=== PATIENT | male | born 1955 | race American Indian/Alaskan Native ===

== ENCOUNTER 2016-12-14 09:38 | Emergency (ER) | payer SELFPAY ==
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
[2016-12-14 11:36] LABS: Urine Drugs of Abuse Note Disclamer
[2016-12-14] MEDS ORDERED: NORMODYNE IV ONE ×2 (11:38→11:42)
[2016-12-14 11:44] LABS: Bilirubin,Urine NEG (Negative); Blood,Urine SM (Negative); Ketones,Urine NEG (Negative); Leukocyte Esterase,Urine NEG (Negative); Nitrite,Urine NEG (Negative); Urobilinogen,Urine < 2.0 mg/dL (<2.0)
--- NOTE | 2016-12-14 11:46 | XRay Report ---
AP CHEST: HISTORY: Hypertension, chest pain AP view of the chest demonstrates a normal mediastinal and cardiac contour with clear lungs and normal bony and soft tissue structures. IMPRESSION: Unremarkable AP chest.
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
[2016-12-14 11:54] LABS: Basophils % (Auto) 0.5 % (0.0-1.8); Eosinophils % (Auto) 3.1 % (0.0-4.3); Hematocrit 40.8 % (35.5-45.6); Hemoglobin 12.8 gm/dl (11.8-15.2); Mean Corpuscular HGB Conc 32 % (32-34); Mean Corpuscular Volume 82 fl (84-94); Platelet Count 271 K/mm3 (140-440); Red Blood Count 4.97 M/mm3 (3.65-5.03); Red Cell Distribution Width 17.8 % (13.2-15.2); White Blood Count 7.4 K/mm3 (4.5-11.0)
[2016-12-14 12:03] LABS: INR 0.86 (0.87-1.13)
[2016-12-14 12:04] LABS: Partial Thromboplastin Time 31.1 Sec. (24.2-36.6)
[2016-12-14 12:05] LABS: Mean Corpuscular Hemoglobin 26 pg (28-32)
[2016-12-14 12:14] VITALS: BP 192/103
[2016-12-14 12:14] LABS: Blood Urea Nitrogen 13 mg/dL (9-20); Carbon Dioxide 25 mmol/L (22-30)
[2016-12-14 12:15] LABS: Anion Gap 22 mmol/L; Calcium 9.3 mg/dL (8.4-10.2); Chloride 99.2 mmol/L (98-107); Glucose 142 mg/dL (75-100); Potassium 3.9 mmol/L (3.6-5.0); Sodium 142 mmol/L (137-145)
[2016-12-14 12:17] LABS: Alanine Aminotransferase 22 units/L (7-56); Albumin 3.8 g/dL (3.9-5); Alkaline Phosphatase 68 units/L (35-129); Total Protein 7.5 g/dL (6.3-8.2)
[2016-12-14 12:19] LABS: Bilirubin,Direct < 0.2 mg/dL (0-0.2)
== END 2016-12-14 12:36 | disposition other institution (70) ==
LOC: ED 09:38
DX: S06.5X0A Traumatic subdural hemorrhage without loss of consciousness, initial encounter (principal); S00.212A Abrasion of left eyelid and periocular area, initial encounter; I11.0 Hypertensive heart disease with heart failure; I50.9 Heart failure, unspecified; E11.40 Type 2 diabetes mellitus with diabetic neuropathy, unspecified; I25.2 Old myocardial infarction; E78.00 Pure hypercholesterolemia, unspecified; Z87.891 Personal history of nicotine dependence; Z79.01 Long term (current) use of anticoagulants; Z79.82 Long term (current) use of aspirin; Y04.8XXA Assault by other bodily force, initial encounter; Y93.89 Activity, other specified; Y92.89 Other specified places as the place of occurrence of the external cause; Y99.8 Other external cause status
CPT/HCPCS: 36415; 70450; 70486; 71010; 72125; 80048; 80074; 80307; 81001; 82962; 83735; 85025; 85610; 85730; 93005; 93010; 96374; 99291; G0480; 80320

== ENCOUNTER 2016-12-25 13:01 | Outpatient (CLI) | payer OTHER ==
[2016-12-25 13:35] LABS: Blood Urea Nitrogen 24 mg/dL (9-20)
--- NOTE | 2016-12-25 15:13 | Cat Scan Report ---
CT HEAD WITH AND WITHOUT CONTRAST INDICATION: History of subdural hematomas. COMPARISON: 12/14/2016. FINDINGS: Head CT performed before and after IV contrast suggest interval resolution of small bifrontal subdural hemorrhages. Stable age appropriate ventricles and sulci and mild periventricular white matter hypodense small vessel ischemic disease. No definite acute infarct, hemorrhage, mass effect or midline shift. No focal suspicious abnormal enhancement. Normal posterior fossa with preserved basilar cisterns. Clear imaged paranasal sinuses and mastoid air cells. Atherosclerotic internal carotid and vertebral artery calcifications. Normal calvarium and scalp. Edentulous jaw. CONCLUSION: Age-appropriate atrophy, microvascular changes and interval resolution of small bilateral subdural hemorrhages without acute intracranial CT abnormality, as described. Thank you for the opportunity to participate in this patient's care.
== END 2016-12-25 13:02 | disposition home or self-care (01) ==
LOC: CT 13:01
PROVIDERS: ATTEND Student in an Organized Health Care Education/Training Program
DX: S06.5X0D Traumatic subdural hemorrhage without loss of consciousness, subsequent encounter (principal); E11.9 Type 2 diabetes mellitus without complications; G31.89 Other specified degenerative diseases of nervous system; I10 Essential (primary) hypertension; I70.0 Atherosclerosis of aorta; X58.XXXD Exposure to other specified factors, subsequent encounter
CPT/HCPCS: 36415; 70470; 82565; 84520; Q9967

== ENCOUNTER 2017-05-05 10:25 | Emergency (ER) | payer SELFPAY ==
--- NOTE | 2017-05-05 11:10 | Emergency Department Report ---
ED Chest Pain HPI - General Chief Complaint: Chest Pain Stated Complaint: CHEST PAIN Time Seen by Provider: 05/05/17 10:52 Source: EMS Mode of arrival: Stretcher Limitations: No Limitations - History of Present Illness Initial Comments: Patient is 61 years old -Citizen Of [place] male history of coronary artery disease status post stent last year, hypertension and dyslipidemia. Patient presented with left-sided chest pain started this morning while he was walking. Patient stated that his chest pain is resolved now that he was similar to when he had his heart attack last year. Patient received 324 mg of aspirin via EMS. Initial EKG did not show any ST elevation. MD Complaint: chest pain -: Sudden, This morning Onset: during exertion Pain Location: left chest Pain Radiation: LUE Severity scale (0 -10): 5 Quality: heaviness, pressure Consistency: now resolved - Related Data Previous Rx's Medication Instructions Recorded Last Taken Type Aspirin 81 mg PO DAILY #30 tab.chew 03/16/16 1 Day Ago Rx ~06/25/16 ALBUTEROL NEB's [Proventil 0.083% 2.5 mg IH Q4HRT PRN #30 nebu 06/29/16 Unknown Rx NEBS] Acetaminophen [Acetaminophen TAB] 650 mg PO Q4H PRN #30 tablet 06/29/16 Unknown Rx AtorvaSTATin [Lipitor] 40 mg PO QHS #30 tablet 06/29/16 Unknown Rx Azithromycin [Zithromax TAB] 250 mg PO QDAY #3 tablet 06/29/16 Unknown Rx Benzonatate [Tessalon Perles] 100 mg PO Q12H #30 capsule 06/29/16 Unknown Rx Clopidogrel [Plavix] 75 mg PO QDAY #30 tablet 06/29/16 Unknown Rx Famotidine [Pepcid] 20 mg PO QHS #30 tablet 06/29/16 Unknown Rx Gabapentin [Neurontin] 100 mg PO BID #60 capsule 06/29/16 Unknown Rx Ipratropium/Albuterol Sulfate 1 ampul IH TIDRT #1 mo 06/29/16 Unknown Rx [DUONEB *Not for PRN Use*] Lisinopril [Zestril TAB] 20 mg PO QDAY #30 tablet 06/29/16 Unknown Rx Metoprolol [Lopressor TAB] 50 mg PO BID #60 tablet 06/29/16 Unknown Rx Nitroglycerin [Nitrostat] 0.4 mg SL .Q5MIN PRN #30 tablet 06/29/16 Unknown Rx glipiZIDE [Glucotrol] 5 mg PO QDDIAB #30 tablet 06/29/16 Unknown Rx guaiFENesin ER [Mucinex ER] 600 mg PO BID PRN #10 tablet 06/29/16 Unknown Rx metFORMIN [Glucophage] 500 mg PO BIDDIAB #60 tablet 06/29/16 Unknown Rx oxyCODONE /ACETAMINOPHEN [Percocet 1 tab PO Q6H PRN #30 tablet 06/29/16 Unknown Rx 5/325 mg] Allergies Allergy/AdvReac Type Severity Reaction Status Date / Time No Known Allergies Allergy Verified 12/14/16 10:00 Heart Score - HEART Score History: Moderately suspicious EKG: Non-specific Age: 45-65 Risk factors: > 3 risk factors or hx of atherosclerotic disease Troponin: < normal limit HEART Score: 5 - Critical Actions Critical Actions: 4-6 pts:12-16.6% risk of adverse cardiac event. Should be admitted ED Review of Systems ROS: Stated complaint: CHEST PAIN Other details as noted in HPI Comment: All other systems reviewed and negative Constitutional: denies: chills, fever Respiratory: denies: cough, shortness of breath, SOB with exertion, SOB at rest Cardiovascular: chest pain. denies: palpitations, dyspnea on exertion Gastrointestinal: denies: abdominal pain, nausea, vomiting, diarrhea, constipation, hematemesis, hematochezia Genitourinary: denies: urgency, frequency Musculoskeletal: denies: back pain, joint swelling Neurological: denies: headache, weakness, numbness, paresthesias, confusion ED Past Medical Hx - Past Medical History Hx Hypertension: Yes Hx Heart Attack/AMI: Yes (stent placement.) Hx Congestive Heart Failure: Yes Hx Diabetes: Yes Hx GERD: Yes Hx Arthritis: Yes Additional medical history: high cholesterol. neuropathy - Surgical History Hx Coronary Stent: Yes Additional Surgical History: back surgery x 4. Stents - Social History Smoking Status: Current Every Day Smoker - Medications Home Medications: Home Medications Medication Instructions Recorded Confirmed Last Taken Type Aspirin 81 mg PO DAILY #30 tab.chew 03/16/16 06/26/16 1 Day Ago Rx ~06/25/16 ALBUTEROL NEB's [Proventil 0.083% 2.5 mg IH Q4HRT PRN #30 nebu 06/29/16 Unknown Rx NEBS] Acetaminophen [Acetaminophen TAB] 650 mg PO Q4H PRN #30 tablet 06/29/16 Unknown Rx AtorvaSTATin [Lipitor] 40 mg PO QHS #30 tablet 06/29/16 Unknown Rx Azithromycin [Zithromax TAB] 250 mg PO QDAY #3 tablet 06/29/16 Unknown Rx Benzonatate [Tessalon Perles] 100 mg PO Q12H #30 capsule 06/29/16 Unknown Rx Clopidogrel [Plavix] 75 mg PO QDAY #30 tablet 06/29/16 Unknown Rx Famotidine [Pepcid] 20 mg PO QHS #30 tablet 06/29/16 Unknown Rx Gabapentin [Neurontin] 100 mg PO BID #60 capsule 06/29/16 Unknown Rx Ipratropium/Albuterol Sulfate 1 ampul IH TIDRT #1 mo 06/29/16 Unknown Rx [DUONEB *Not for PRN Use*] Lisinopril [Zestril TAB] 20 mg PO QDAY #30 tablet 06/29/16 Unknown Rx Metoprolol [Lopressor TAB] 50 mg PO BID #60 tablet 06/29/16 Unknown Rx Nitroglycerin [Nitrostat] 0.4 mg SL .Q5MIN PRN #30 tablet 06/29/16 Unknown Rx glipiZIDE [Glucotrol] 5 mg PO QDDIAB #30 tablet 06/29/16 Unknown Rx guaiFENesin ER [Mucinex ER] 600 mg PO BID PRN #10 tablet 06/29/16 Unknown Rx metFORMIN [Glucophage] 500 mg PO BIDDIAB #60 tablet 06/29/16 Unknown Rx oxyCODONE /ACETAMINOPHEN [Percocet 1 tab PO Q6H PRN #30 tablet 06/29/16 Unknown Rx 5/325 mg] ED Physical Exam - General Limitations: No Limitations General appearance: alert, in no apparent distress - Head Head exam: Present: atraumatic, normocephalic, normal inspection - Eye Eye exam: Present: normal appearance, PERRL - ENT ENT exam: Present: normal exam, normal orophraynx, mucous membranes moist - Neck Neck exam: Present: normal inspection, full ROM. Absent: tenderness, meningismus, lymphadenopathy, thyromegaly - Respiratory Respiratory exam: Present: normal lung sounds bilaterally. Absent: respiratory distress, wheezes, rales, rhonchi, stridor, chest wall tenderness, accessory muscle use, decreased breath sounds, prolonged expiratory - Cardiovascular Cardiovascular Exam: Present: regular rate, normal rhythm, normal heart sounds - GI/Abdominal GI/Abdominal exam: Present: soft, normal bowel sounds. Absent: distended, tenderness, guarding, rebound, rigid, organomegaly, mass, bruit, pulsatile mass , hernia - Extremities Exam Extremities exam: Present: normal inspection, full ROM, normal capillary refill - Back Exam Back exam: Present: normal inspection, full ROM. Absent: tenderness, CVA tenderness (R), CVA tenderness (L), muscle spasm, paraspinal tenderness, vertebral tenderness - Neurological Exam Neurological exam: Present: alert, oriented X3, CN II-XII intact, normal gait, reflexes normal. Absent: abnormal gait, motor sensory deficit - Skin Skin exam: Present: warm, intact, normal color. Absent: cyanosis, diaphoretic, erythema, urticaria ED Course Vital Signs 05/05/17 05/05/17 10:50 10:55 Temperature 98 F 98 F Pulse Rate 68 68 Respiratory 15 15 Rate Blood Pressure 144/92 Blood Pressure 144/92 [Left] O2 Sat by Pulse 95 95 Oximetry CHRISTIANO score - Christiano Score Age > 65: (0) No Aspirin use within the Past 7 Days: (1) Yes 3 or more CAD Risk Factors: (1) Yes 2 or more Angina events in past 24 hrs: (1) Yes Known CAD with more than 50% Stenosis: (1) Yes Elevated Cardiac Markers: (0) No ST Deviation Greater than 0.5mm: (0) No CHRISTIANO Score: 4 ED Medical Decision Making - Lab Data Result diagrams: 05/05/17 11:34 05/05/17 11:34 - EKG Data -: EKG Interpreted by In EKG shows normal: sinus rhythm Rate: normal - EKG Data Interpretation: no acute changes - Radiology Data Radiology results: report reviewed Referring Physician: RACHNA MO Patient Name: EVANS STYLES Date of : 1955 Sex: Male Report Date: 2017-05-05 Report Status: Finalized Findings [facility] [address] [place] [address] XRay Report Signed Patient: EVANS STYLES MR#: [id number] : 1955 Acct:[id number] Age/Sex: 61 / M ADM Date: 05/05/17 Loc: ED Attending Dr: Ordering Physician: RACHNA MO Date of Service: 05/05/17 Procedure(s): XR chest 1V ap Accession Number(s): [id number] cc: RACHNA MO Fluoro Time In Minutes: AP CHEST: HISTORY: chest pain AP view of the chest demonstrates a normal mediastinal and cardiac contour with clear lungs and normal bony and soft tissue structures. IMPRESSION: Unremarkable AP chest. Transcribed By: TTR Dictated By: MARIE CAPPS JR, MD Electronically Authenticated By: MARIE CAPPS JR, MD Signed Date/Time: 05/05/171113 DD/ 13 TD/TT: 05/05/171113 - Medical Decision Making discuss with Dr Casas, informed about the patient, he agreed to admit patient to his service. Critical care attestation.: If time is entered above; I have spent that time in minutes in the direct care of this critically ill patient, excluding procedure time. ED Disposition Clinical Impression: Chest pain Disposition: -09 OP ADMIT IP TO THIS HOSP Is pt being admited?: Yes Condition: Stable Instructions: Chest Pain (ED) Referrals: PRIMARY CARE, [Primary Care Provider] - 3-5 Days
--- NOTE | 2017-05-05 11:20 | XRay Report ---
AP CHEST: HISTORY: chest pain AP view of the chest demonstrates a normal mediastinal and cardiac contour with clear lungs and normal bony and soft tissue structures. IMPRESSION: Unremarkable AP chest.
[2017-05-05 11:59] LABS: Eosinophils # (Auto) 0.1 K/mm3 (0.0-0.4); Eosinophils % (Auto) 3.1 % (0.0-4.3); Hematocrit 41.9 % (35.5-45.6); Hemoglobin 13.4 gm/dl (11.8-15.2); Lymphocytes # (Auto) 1.3 K/mm3 (1.2-5.4); Lymphocytes % (Auto) 30.7 % (13.4-35.0); Mean Corpuscular HGB Conc 32 % (32-34); Mean Corpuscular Hemoglobin 26 pg (28-32); Mean Corpuscular Volume 82 fl (84-94); Monocytes # (Auto) 0.4 K/mm3 (0.0-0.8); Monocytes % (Auto) 9.3 % (0.0-7.3); Platelet Count 290 K/mm3 (140-440); Red Blood Count 5.13 M/mm3 (3.65-5.03); Red Cell Distribution Width 17.1 % (13.2-15.2)
[2017-05-05 12:02] LABS: Alanine Aminotransferase 27 units/L (7-56); Albumin 4.1 g/dL (3.9-5); BUN/Creatinine Ratio 19; Blood Urea Nitrogen 19 mg/dL (9-20); Hemolysis Index 11; Lipase 29 units/L (13-60)
[2017-05-05 12:03] LABS: INR 0.87 (0.87-1.13)
[2017-05-05 12:04] LABS: Partial Thromboplastin Time 34.8 Sec. (24.2-36.6)
--- NOTE | 2017-05-05 13:26 | History and Physical Report ---
History of Present Illness Chief complaint: My chest and leg hurts History of present illness: 61 YO Male with HTN, CAD S/P Stent Placement, HLD, CHF, DM, GERD, OA, presents to ED for evaluation of chest pain. Pt seen and evaluated in ED and found to have Atypical chest pain. Upon further evaluation, and interview, patient states that he ran out of medication and does not have PCP to prescribe medicaton. Pt states that the reason for ED visit was to get medication refill. Pt treated with serial cardiac enzyme, ekg, and telemetry were unremarkable for acute ischemia, D dimer was normal. Pt discharged home and instructed to f/u pcp 1wk, and cardiology prn for f/u care. Pt counseled regarding risk of worsening disease and if continued medication and dietary noncompliance. Past History Past Medical History: CAD, diabetes, GERD, heart failure, hypertension, hyperlipidemia Past Surgical History: Other (stent, back surgery) Social history: single. denies: smoking, alcohol abuse Family history: diabetes, hypertension Medications and Allergies Allergies Allergy/AdvReac Type Severity Reaction Status Date / Time No Known Allergies Allergy Verified 12/14/16 10:00 Home Medications Medication Instructions Recorded Confirmed Last Taken Type Aspirin 81 mg PO DAILY #30 tab.chew 03/16/06/26/16 1 Day Ago Rx ~06/25/16 ALBUTEROL NEB's [Proventil 0.083% 2.5 mg IH Q4HRT PRN #30 nebu 06/29/16 Unknown Rx NEBS] Acetaminophen [Acetaminophen TAB] 650 mg PO Q4H PRN #30 tablet 06/29/16 Unknown Rx AtorvaSTATin [Lipitor] 40 mg PO QHS #30 tablet 06/29/16 Unknown Rx Azithromycin [Zithromax TAB] 250 mg PO QDAY #3 tablet 06/29/16 Unknown Rx Benzonatate [Tessalon Perles] 100 mg PO Q12H #30 capsule 06/29/16 Unknown Rx Clopidogrel [Plavix] 75 mg PO QDAY #30 tablet 06/29/16 Unknown Rx Famotidine [Pepcid] 20 mg PO QHS #30 tablet 06/29/16 Unknown Rx Gabapentin [Neurontin] 100 mg PO BID #60 capsule 06/29/16 Unknown Rx Ipratropium/Albuterol Sulfate 1 ampul IH TIDRT #1 mo 06/29/16 Unknown Rx [DUONEB *Not for PRN Use*] Lisinopril [Zestril TAB] 20 mg PO QDAY #30 tablet 06/29/16 Unknown Rx Metoprolol [Lopressor TAB] 50 mg PO BID #60 tablet 06/29/16 Unknown Rx Nitroglycerin [Nitrostat] 0.4 mg SL .Q5MIN PRN #30 tablet 06/29/16 Unknown Rx glipiZIDE [Glucotrol] 5 mg PO QDDIAB #30 tablet 06/29/16 Unknown Rx guaiFENesin ER [Mucinex ER] 600 mg PO BID PRN #10 tablet 06/29/16 Unknown Rx metFORMIN [Glucophage] 500 mg PO BIDDIAB #60 tablet 06/29/16 Unknown Rx oxyCODONE /ACETAMINOPHEN [Percocet 1 tab PO Q6H PRN #30 tablet 06/29/16 Unknown Rx 5/325 mg] Review of Systems Constitutional: no weight loss, no weight gain, no fever, no chills Ears, nose, mouth and throat: no ear pain, no ear discharge, no tinnitis, no decreased hearing, no nose pain, no nasal congestion Cardiovascular: no chest pain, no orthopnea, no palpitations, no rapid/ irregular heart beat, no edema Respiratory: no cough, no cough with sputum, no excessive sputum, no hemoptysis , no shortness of breath Gastrointestinal: no abdominal pain, no nausea, no vomiting, no diarrhea, no constipation Genitourinary Male: no dysuria, no hematuria, no flank pain, no discharge, no urinary frequency, no urinary hesitancy Rectal: no pain, no incontinence, no bleeding Musculoskeletal: no neck stiffness, no neck pain, no shooting arm pain, no arm numbness/tingling, no low back pain, no shooting leg pain Integumentary: no rash, no pruritis, no redness, no sores, no wounds, no jaundice Neurological: no head injury, no transient paralysis, no paralysis, no weakness , no parathesias, no numbness, no tingling Psychiatric: no anxiety, no memory loss, no change in sleep habits, no sleep disturbances, no insomnia, no hypersomnia, no change in appetite Endocrine: no cold intolerance, no heat intolerance, no polyphagia, no excessive thirst, no polydipsia, no polyuria Hematologic/Lymphatic: no easy bruising, no easy bleeding, no lymphadenopathy, no lymphedema Allergic/Immunologic: no urticaria, no allergic rhinitis, no wheezing Exam - Constitutional Vitals: Temp Pulse Resp BP Pulse Ox 98 F 68 15 144/92 95 05/05/17 10:55 05/05/17 10:55 05/05/17 10:55 05/05/17 10:55 05/05/17 10:55 General appearance: Present: no acute distress, well-nourished - EENT Eyes: Present: PERRL ENT: hearing intact, clear oral mucosa - Neck Neck: Present: supple, normal ROM - Respiratory Respiratory effort: normal Respiratory: bilateral: CTA - Cardiovascular Heart Sounds: Present: S1 & S2. Absent: rub, click - Extremities Extremities: pulses symmetrical, No edema Peripheral Pulses: within normal limits - Abdominal General gastrointestinal: Present: soft, non-tender, non-distended, normal bowel sounds Male genitourinary: Present: normal - Integumentary Integumentary: Present: clear, warm, dry - Musculoskeletal Musculoskeletal: gait normal, strength equal bilaterally - Psychiatric Psychiatric: appropriate mood/affect, intact judgment & insight - Neurologic Neurologic: CNII-XII intact, moves all extremities Results - Labs CBC & Chem 7: 05/05/17 11:34 05/05/17 11:34 Labs: Abnormal lab results 05/05/17 05/05/17 Range/Units 11:34 11:34 WBC 4.2 L (4.5-11.0) K/mm3 RBC 5.13 H (3.65-5.03) M/mm3 MCV 82 L (84-94) fl MCH 26 L (28-32) pg RDW 17.1 H (13.2-15.2) % [place] % (Auto) 9.3 H (0.0-7.3) % Chloride 97.0 L (98-107) mmol/L Glucose 116 H (75-100) mg/dL Assessment and Plan - Patient Problems (1) Noncompliance with medication regimen Current Visit: Yes Status: Acute Plan to address problem: Patient given prescription for all prehospital medication, Pt counseled regarding noncompliance, Pt instructed to f/u pcp 5 days with B/P log, F/U cardiology 1wk for f/u care.
[2017-05-05 15:45] LABS: Bacteria,Urine 1+ /HPF (Negative); Bilirubin,Urine NEG (Negative); Blood,Urine SM (Negative); Color,Urine Straw (Yellow); Mucus,Urine FEW /HPF; Nitrite,Urine NEG (Negative); Urobilinogen,Urine < 2.0 mg/dL (<2.0)
[2017-05-05 17:11] VITALS: BP 137/87
== END 2017-05-05 17:01 | disposition home or self-care (01) ==
LOC: ED 10:25
DX: R07.89 Other chest pain (principal); I11.0 Hypertensive heart disease with heart failure; I50.9 Heart failure, unspecified; I25.10 Atherosclerotic heart disease of native coronary artery without angina pectoris; I25.2 Old myocardial infarction; E11.9 Type 2 diabetes mellitus without complications; K21.9 Gastro-esophageal reflux disease without esophagitis; E78.00 Pure hypercholesterolemia, unspecified; G62.9 Polyneuropathy, unspecified; F17.200 Nicotine dependence, unspecified, uncomplicated; Z95.818 Presence of other cardiac implants and grafts
CPT/HCPCS: 36415; 71045; 80053; 81001; 83690; 84484; 85025; 85379; 85610; 85730; 93005; 93010